=== PATIENT | female | born 2000 | race Caucasian/White ===

== ENCOUNTER 2019-01-13 02:40 | Emergency (ER) | payer BC, MEDICAID, OTHER ==
[~2019-01-13] VITALS: Ht 165.1 cm; Wt 49.4 kg
[~2019-01-13 02:40] MED LIST: ALB0.5UD NEB; ALBU6.7H3 IH; MONT10TA21 PO
[2019-01-13] MEDS ORDERED: normal saline 1000ML IV soln IVB ONE (02:50)
[2019-01-13] MEDS ORDERED: ondansetron/PF 4mg/2ml inj IV ONE (02:50)
[2019-01-13 03:32] LABS: HEMOGLOBIN 12.1 g/dl (12.0-16.0); MEAN CORPUSCULAR HEMOGLOBIN 31.2 PG (27.0-31.0); MONOCYTES # (AUTO) 0.7 X10'3 (0-0.9); NEUTROPHILS # (AUTO) 1.9 X10'3 (1.8-7.7); RED BLOOD COUNT 3.88 X10'6 (4.20-5.60)
[2019-01-13 03:34] LABS: BASOPHILS % (AUTO) 0.5 % (0-1); EOSINOPHILS % (AUTO) 0.2 % (0-6); HEMATOCRIT 36.1 % (35.0-45.0); LYMPHOCYTES # (AUTO) 5.3 X10'3 (1.1-4.8); LYMPHOCYTES % (AUTO) 66.5 % (21-51); MEAN CORPUSCULAR HGB CONC 33.6 g/dL (33.0-36.5); MEAN PLATELET VOLUME 8.9 FL (7.4-10.4); MONOCYTES % (AUTO) 8.5 % (2-12); NEUTROPHILS % (AUTO) 24.3 % (42-75); PLATELET COUNT 158 X10'3 (140-440); RED CELL DISTRIBUTION WIDTH 13.6 % (11.5-14.5); WHITE BLOOD COUNT 7.9 X10'3 (4.5-11.0)
[2019-01-13 03:45] LABS: ALANINE AMINOTRANSFERASE 437 U/L (12-78); ALBUMIN 3.6 G/DL (3.4-5.0); ALBUMIN/GLOBULIN RATIO 0.9 (1.1-1.5); ALKALINE PHOSPHATASE 201 IU/L (20-180); ANION GAP 10 (8-16); ASPARTATE AMINO TRANSFERASE 220 U/L (10-37); BILIRUBIN,TOTAL 0.7 MG/DL (0.1-1.0); BLOOD UREA NITROGEN 7 MG/DL (7-18); BUN/CREATININE RATIO 12.7 (6.6-38.0); CALCIUM 9.2 MG/DL (8.5-10.1); CHLORIDE 103 MMOL/L (99-107); CREATININE 0.55 MG/DL (0.40-0.90); GLUCOSE 93 MG/DL (70-104); LIPASE < 50 U/L (73-393); SODIUM 141 MMOL/L (135-145); TOTAL CARBON DIOXIDE 27.8 MMOL/L (24-32); TOTAL PROTEIN 7.7 G/DL (6.4-8.2); eGFR > 90 ML/MIN
[2019-01-13 04:16] LABS: CLARITY,URINE CLEAR (Clear); COLOR,URINE YELLOW (Yellow); GLUCOSE, URINE NEGATIVE (Neg); KETONES,URINE 15 mg/dl (Neg); LEUKOCYTE ESTERASE ,URINE NEGATIVE (Neg); NITRITES, URINE NEGATIVE (Neg); OCCULT BLOOD,URINE NEGATIVE (Neg); PH,URINE 7.5 (4.8-8.0); PROTEIN,URINE NEGATIVE (Neg); UROBILINOGEN,URINE 0.2 E.U/dL (0.2-1.0)
[2019-01-13 04:21] LABS: UA COLLECTION TYPE CLN CATCH MIDSTREAM
[2019-01-13 04:42] LABS: URINE HCG NEGATIVE (NEG)
[2019-01-13] MEDS ORDERED: ONDA4TAB6 PO (04:52)
[2019-01-13 05:31] VITALS: BP 99/54
== END 2019-01-13 05:22 | disposition home or self-care (01) ==
LOC: ER 02:41
DX: R11.2 Nausea with vomiting, unspecified (principal); R94.5 Abnormal results of liver function studies; J02.9 Acute pharyngitis, unspecified; R50.9 Fever, unspecified; R51 Headache; J45.909 Unspecified asthma, uncomplicated; F12.90 Cannabis use, unspecified, uncomplicated; Z98.890 Other specified postprocedural states; Z79.899 Other long term (current) drug therapy
CPT/HCPCS: 80053; 81003; 81025; 83690; 85025; 96361; 96374; 99283; J2405; J7030

== ENCOUNTER 2019-05-24 13:07 | Emergency (ER) | payer OTHER ==
[~2019-05-24] VITALS: Ht 317.5 cm; Wt 56.3 kg
[~2019-05-24 13:07] MED LIST changes: +ONDA4TAB6 PO
[2019-05-24] MEDS ORDERED: CITA-311 PO (13:47)
[2019-05-24 15:06] LABS: URINE HCG NEGATIVE (NEG)
[2019-05-24 15:17] LABS: URINE AMPHETAMINE SCREEN NEGATIVE (Neg); URINE BARBITUATE SCREEN NEGATIVE (Neg); URINE BENZODIAZEPINES SCREEN NEGATIVE (Neg); URINE CANNABINOID SCREEN POSITIVE (Neg); URINE COCAINE SCREEN NEGATIVE (Neg); URINE METHADONE SCREEN NEGATIVE (Neg); URINE OPIATE SCREEN NEGATIVE (Neg); URINE PHENCYCLIDINE SCREEN NEGATIVE (Neg)
[2019-05-24 15:17] LABS: BASOPHILS % (AUTO) 0.4 % (0-1); EOSINOPHILS % (AUTO) 0.3 % (0-6); HEMATOCRIT 35.1 % (35.0-45.0); HEMOGLOBIN 11.9 g/dl (12.0-16.0); LYMPHOCYTES # (AUTO) 1.2 X10'3 (1.1-4.8); LYMPHOCYTES % (AUTO) 21.3 % (21-51); MEAN CORPUSCULAR HEMOGLOBIN 30.1 PG (27.0-31.0); MEAN CORPUSCULAR VOLUME 88.7 FL (78-98); MEAN PLATELET VOLUME 8.1 FL (7.4-10.4); MONOCYTES # (AUTO) 0.7 X10'3 (0-0.9); MONOCYTES % (AUTO) 12.7 % (2-12); NEUTROPHILS # (AUTO) 3.6 X10'3 (1.8-7.7); NEUTROPHILS % (AUTO) 65.3 % (42-75); PLATELET COUNT 204 X10'3 (140-440); RED BLOOD COUNT 3.95 X10'6 (4.20-5.60); RED CELL DISTRIBUTION WIDTH 13.4 % (11.5-14.5); WHITE BLOOD COUNT 5.5 X10'3 (4.5-11.0)
--- NOTE | 2019-05-24 15:27 | NUR ---
primary rn was sent on break, family at the bedside.
[2019-05-24 15:31] LABS: ALANINE AMINOTRANSFERASE 14 U/L (12-78); ALBUMIN 3.8 G/DL (3.4-5.0); ALBUMIN/GLOBULIN RATIO 1.2 (1.1-1.5); ALKALINE PHOSPHATASE 63 IU/L (20-180); ANION GAP 6 (8-16); ASPARTATE AMINO TRANSFERASE 12 U/L (10-37); BILIRUBIN,TOTAL 1.2 MG/DL (0.1-1.0); BLOOD UREA NITROGEN 11 MG/DL (7-18); BUN/CREATININE RATIO 20.4 (6.6-38.0); CALCIUM 8.7 MG/DL (8.5-10.1); CHLORIDE 109 MMOL/L (99-107); CREATININE 0.54 MG/DL (0.40-0.90); GLUCOSE 114 MG/DL (70-104); SODIUM 142 MMOL/L (135-145); TOTAL CARBON DIOXIDE 26.9 MMOL/L (24-32); TOTAL PROTEIN 6.9 G/DL (6.4-8.2); eGFR > 90 ML/MIN
[2019-05-24 15:41] LABS: ETHANOL < 0.010 GM/DL (0.0-0.010)
--- NOTE | 2019-05-24 15:55 | NUR ---
packet sent to [facility]
[2019-05-24 17:14] LABS: CLARITY,URINE CLEAR (Clear); COLOR,URINE YELLOW (Yellow); GLUCOSE, URINE NEGATIVE (Neg); KETONES,URINE NEGATIVE (Neg); LEUKOCYTE ESTERASE ,URINE NEGATIVE (Neg); NITRITES, URINE NEGATIVE (Neg); OCCULT BLOOD,URINE NEGATIVE (Neg); PH,URINE 7.5 (4.8-8.0); PROTEIN,URINE NEGATIVE (Neg); UROBILINOGEN,URINE 0.2 E.U/dL (0.2-1.0)
[2019-05-24 17:19] LABS: UA COLLECTION TYPE CLN CATCH MIDSTREAM
--- NOTE | 2019-05-24 19:14 | NUR ---
Patient is awake and well oriented. Family is at bedside. Patient complains of recent depression and cutting her wrists for relief of depression. Patient admits to suicidal ideation. Patients plan is cutting wrists or medication overdose. Patients parents are at bedside. Parents are supportive and state they can provide a safe enviornment for this patient. Patient states she takes an anti depressent which she started two weeks ago. This patient has a flat affect, she speeks in a very soft voice and a slow rate. She is well oriented and cooperative with this documentation writer. This patients friend arrives with vegan food for the patient. Parents state the day nurse authorized the food. The patient and her parents were advised that this is against policy and a one time exception will be made. The patient and her parents exhibit understanding. A vegan diet will be ordered.
--- NOTE | 2019-05-24 20:30 | NUR ---
Patient sleeping on her right side. Warm blankets were given to this patient.
[2019-05-24] MEDS ORDERED: LORazepam 1 MG tablet PO ONE (21:00)
--- NOTE | 2019-05-24 21:20 | NUR ---
Patient sleeping on her right side. In view from the nursing station.
--- NOTE | 2019-05-24 22:53 | NUR ---
Patient sleeping low fowlers position.
--- NOTE | 2019-05-25 02:43 | NUR ---
Patient is sleeping quietly on her left side.
--- NOTE | 2019-05-25 02:50 | NUR ---
Chapis smith in [facility] - 05/25/19 at 0257 by CHARITO Patient is sleeping quietly on her left side.
[2019-05-25] MEDS ORDERED: albuterol 2.5 MG/3 ML nebule NEB PRN (04:00)
[2019-05-25] MEDS ORDERED: ALBUTEROL SULFATE 2.5 MG NEB SCH (04:00)
--- NOTE | 2019-05-25 05:48 | NUR ---
Patient is sleeping quietly on her left side.
[2019-05-25 05:59] VITALS: BP 107/68
--- NOTE | 2019-05-25 06:30 | NUR ---
Patient sleeping on left side. No distress observed. Continue to monitor.
[2019-05-25] MEDS ORDERED: montelukast 10mg tablet PO SCH (08:00)
[2019-05-25] MEDS ORDERED: CITALOpram 10mg tablet PO SCH (08:00)
--- NOTE | 2019-05-25 08:15 | NUR ---
Patient eating her breakfast. No distress observed. Continue to monitor.
--- NOTE | 2019-05-25 09:25 | NUR ---
Patient tearful. Patient states she still feels like killing herself. Patient states she has been feeling like this for a month. Patient is pending [facility] eval. Continue to monitor.
--- NOTE | 2019-05-25 10:35 | NUR ---
Patient's parents sitting at bedside. Patient sleeping on left side. No distress observed at this time. Continue to monitor.
--- NOTE | 2019-05-25 11:23 | NUR ---
Patient sleeping on right side. No distress observed. Continue to monitor.
--- NOTE | 2019-05-25 13:44 | NUR ---
Breaking primary RN, pt is up at the nurses station requesting phone, I obtained one and gave it to her, no agitation observed
--- NOTE | 2019-05-25 14:30 | NUR ---
Patient placed on a 5150 for DTS. Patient advised. Continue to monitor.
== END 2019-05-25 15:26 | disposition home or self-care (01) ==
LOC: EEVIPCON 13:07 → ER 13:07
DX: R45.851 Suicidal ideations (principal); F41.9 Anxiety disorder, unspecified; F32.9 Major depressive disorder, single episode, unspecified; J45.909 Unspecified asthma, uncomplicated; F12.90 Cannabis use, unspecified, uncomplicated; Z98.890 Other specified postprocedural states; Z79.899 Other long term (current) drug therapy
CPT/HCPCS: 36415; 80053; 80305; 80320; 81003; 81025; 84443; 85025; 99284

== ENCOUNTER 2019-05-25 15:00 | Inpatient (IN) | payer OTHER ==
[~2019-05-25] VITALS: Ht 165.1 cm; Wt 55.5 kg
[~2019-05-25 15:00] MED LIST changes: +CITA-311 PO
[2019-05-25] MEDS ORDERED: NICOTINE POLACRILEX 2 MG LOZENGE BC PRN (16:30)
[2019-05-25] MEDS ORDERED: magnesium hydroxide 30ml (MOM) UD suspension PO PRN (16:30)
[2019-05-25] MEDS ORDERED: acetaminophen 325mg tablet PO PRN ×2 (16:30)
[2019-05-25] MEDS ORDERED: loperamide 2mg capsule PO PRN (16:30)
[2019-05-25] MEDS ORDERED: hydrOXYzine 25 MG tablet PO PRN (16:30)
[2019-05-25] MEDS ORDERED: mag hydrox/Alum hydrox/simeth 30ml oral suspension PO PRN (16:30)
[2019-05-25] MEDS ORDERED: traZODone 50mg tablet PO PRN (16:30)
[2019-05-25] MEDS ORDERED: ALBUTEROL SULFATE IH SCH (16:40)
[2019-05-25] MEDS ORDERED: albuterol 2.5 MG/3 ML nebule NEB PRN (16:45)
--- NOTE | 2019-05-25 16:50 | NUR ---
Admission Note: PT admitted to [facility] on 5150 for DTS at 1555. Pt states she feels helpless, hopeless, sad and doesn't want to live anymore. She does not believe there is a reason for her to be alive. She drank alcohol, started feeling more depressed and the suicide thoughts are worse. She does not trust herself and states she will cut her wrist or overdose on her antidepressants to end her life. She would not contract for safety even with support from her parents. Pt has history of depression, anxiety, asthma.
[2019-05-25 17:00] VITALS: BP 120/69
[2019-05-25 20:49] VITALS: BP 100/62
--- NOTE | 2019-05-26 02:53 | NUR ---
Nursing Progress Note: Legal hold: 5150 Client on involuntary status for DTS. Report received from JACQUELINE Alvarez with use of SBAR. Why are they here: PT admitted to [facility] on 5150 for DTS at 1555. Pt states she feels helpless, hopeless, sad and doesn't want to live anymore. She does not believe there is a reason for her to be alive. She drank alcohol, started feeling more depressed and the suicide thoughts are worse. She does not trust herself and states she will cut her wrist or overdose on her antidepressants to end her life. She would not contract for safety even with support from her parents. Pt has history of depression, anxiety, asthma. Assessment: What has happened this shift: The patient was in her room waiting for her parents to visit. She reported that she was hungry due to her being a Vegan, and she hadn't yet gotten a Vegan diet. Dietary was contacted and they sent up some Vegan type foods and snacks. She happily accepted. The patient would only say one thing when asked how she came to be here. "All I can say is...it's one of the worst things that can be done to a person." The patient reports that she's been hopelessly depressed for long time and anxiety makes it worse. She had nice visit with her parents, took her meds, then went to bed. S/I, H/I: SI A/VH: Denies Sleep: See sleep assessment ADL's: Independent Group attendance: No night groups. Were meds taken: Yes Any med S/E: None reported or observed. Mental Status Exam Appearance: Thin, well groomed young lady with long black hair in street clothes. Eye contact: Fair Behavior: Isolative, quiet, reserved. Speech: Clear Mood: Depressed Affect: Flat Thought process: Linear Thought Content: Unable Cognition: Alert Insight: Poor Judgment: Poor Interventions PRN's used: Therapeutic interventions: Introduced self and established rapport, ensured contract for safety, maintained a safe and therapeutic environment, monitored behaviors and need for intervention, provided clear and simple instructions, and maintained Q 15 min safety checks. Restraints/seclusion/emergency medication: N/A Justification of Continued Inpatient Treatment: Pt. requires interruption of current crisis, medication adjustments and a safe and therapeutic environment.
[2019-05-26] MEDS ORDERED: CITALOpram 10mg tablet PO SCH (08:00)
[2019-05-26 08:06] VITALS: BP 100/55
[2019-05-26] MEDS: montelukast 10mg tablet PO SCH (08:27)
[2019-05-26] MEDS ORDERED: LORazepam 1 MG tablet PO PRN (16:50)
--- NOTE | 2019-05-26 18:17 | NUR ---
Nursing Progress Note: Legal hold: 5150 Client on involuntary status for DTS. Report received from RN with use of SBAR. Why are they here: PT admitted to [facility] on 5150 for DTS at 1555. Pt states she feels helpless, hopeless, sad and doesn't want to live anymore. She does not believe there is a reason for her to be alive. She drank alcohol, started feeling more depressed and the suicide thoughts are worse. She does not trust herself and states she will cut her wrist or overdose on her antidepressants to end her life. She would not contract for safety even with support from her parents. Pt has history of depression, anxiety, asthma. Assessment: What has happened this shift: Received Pt in her room sleeping w/o distress with covers over her head in her room at change of shift. Pt awoke for vitals and was pleasant and cooperative with assessment and morning meds. Routine for day explained to her and she stated she is looking forward to groups. Pt visited with parents and brother in AM. She attended groups and unit activities and appeared to be less depressed than noted at admission. She walked the halls a bit and was seen smiling and talking with another Pt. Pt instructed to come to staff if she felt uncomfortable with any other Pts. Pt played scrabble in community room for a while and watched some TV. She reports not having SI or thoughts of self harm and able to speak of future plans at school and maybe getting a new job. S/I, H/I: Denies A/VH: Denies Sleep: Not on Day shift ADL's: Independent Group attendance: Yes Were meds taken: Yes Any med S/E: None reported or observed. Mental Status Exam Appearance: Well groomed in own clothes Eye contact: Good Behavior: Quiet but interactive Speech: Clear Mood: Depressed Affect: Smiling Thought process: Linear Thought Content: BF, school, other Pts Cognition: Alert Insight: Fair Judgment: Fair Interventions PRN's used: Therapeutic interventions: Introduced self and established rapport, ensured contract for safety, maintained a safe and therapeutic environment, monitored behaviors and need for intervention, provided clear and simple instructions, and maintained Q 15 min safety checks. Restraints/seclusion/emergency medication: N/A Justification of Continued Inpatient Treatment: Pt. requires interruption of current crisis, medication adjustments and a safe and therapeutic environment.
[2019-05-26 20:00] VITALS: BP 96/54
[2019-05-26] MEDS: traZODone 50mg tablet PO PRN (20:50)
[2019-05-26] MEDS: citalopram 20mg tablet PO SCH (20:50)
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
[2019-05-27] MEDS: citalopram 20mg tablet PO SCH (08:24)
[2019-05-27] MEDS: montelukast 10mg tablet PO SCH (08:24)
[2019-05-27 08:32] VITALS: BP 99/67
--- NOTE | 2019-05-27 14:40 | NUR ---
Assessment Presenting Issues: Pt's on 5149 due to increasing sxs of depression, anxiety and attempts of self harm. Pt needs a psychosocial assessment. Interventions: SS met w/pt and engaged her in discussion to complete a bio-psychosococial assessment. Pt signed KARY & consent for treatment. Pt also completed a Mood Disorder Questionaire, per result of her MDQ, sxs of a mood disorder are not present at this time. Plan: SS will begin dcp activities w/pt & family. Diamante Gorman LCSW Addendum: 05/28/19 at 0817 by Diamante Gorman Amended: Links added.
--- NOTE | 2019-05-27 15:35 | NUR ---
Nursing Progress Note Legal hold: 5150 Client on involuntary status for DTS. Report received from JEROME Castro with use of SBAR. Why are they here: PT admitted to [facility] on a 5150 for DTS. Pt states she feels helpless, hopeless, sad and doesn't want to live anymore. She does not believe there is a reason for her to be alive. She drank alcohol, started feeling more depressed becoming suicidal with a plan. to cut or OD on pills. She would not contract for safety even with support from her parents. Pt has history of depression, anxiety, asthma. Assessment: What has happened this shift: Pt sleeping on her bed. RR even and unlabored; her head is covered. Pt went to groups and socializes well with peers. She played a board game in the Rec RM after lunch. She is quiet, calm and cooperative. She agrees she needs to stay here and let her doctors help her before going home. S/I, H/I: Denies A/VH: Denies Sleep: None ADL's: Independent Group attendance: Yes Were Meds taken: Yes Any med S/E: None reported or observed. Mental Status Exam Appearance: personal clothing Eye contact: Good Behavior: Calm Speech: Normal rate and rhythm Mood: Euthymic Affect: Bright Thought process: Linear Thought Content: Not understanding why she became suicidial Cognition: Alert Insight: Poor Judgment: Fair Interventions PRN's used: N/A Therapeutic interventions: 1:1 assessment, therapeutic communication w/active listening, medication administration/education/monitoring, encouraged group attendance, maintained Q 15 min safety checks. Restraints/seclusion/emergency medication: N/A Justification of Continued Inpatient Treatment: Pt. requires interruption of current crisis, medication adjustments and a safe and therapeutic environment.
[2019-05-27 20:48] VITALS: BP 104/62
[2019-05-27] MEDS: traZODone 50mg tablet PO PRN (21:20)
--- NOTE | 2019-05-27 21:49 | NUR ---
Nursing Progress Note: Legal hold: 5150 Client on involuntary status for DTS. Report received from JACQUELINE Alvarez with use of SBAR. Why are they here: PT admitted to [facility] on 5150 for DTS at 1555. Pt states she feels helpless, hopeless, sad and doesn't want to live anymore. She does not believe there is a reason for her to be alive. She drank alcohol, started feeling more depressed and the suicide thoughts are worse. She does not trust herself and states she will cut her wrist or overdose on her antidepressants to end her life. She would not contract for safety even with support from her parents. Pt has history of depression, anxiety, asthma. Assessment: What has happened this shift: The patient was seen in her room after her parents' visit. She reports that she's in her room to avoid another patient that thinks he loves her, and is writing love letters to her. This patient is sad, shy, young, and socially awkward. She may lack the social skills to deter this other patient, so she stays isolated in her room. The patient has seen the "love letter" and does not agree with it. She, in fact appears to be disgusted by it. "My hold is up tomorrow...I think they're going to let me go home, so as long as I stay in here, I won't have to see him." The patient is still depressed, but denying SI at this time. She may be minimizing so she can go home. The patient will be monitored through the night for her safety. S/I, H/I: Denies, but may be minimizing to go home. A/VH: Denies Sleep: See sleep assessment ADL's: Independent Group attendance: No night groups. Were meds taken: Yes Any med S/E: None reported or observed. Mental Status Exam Appearance: Thin, well groomed young lady with long wavy black hair in street clothes. Eye contact: Fair Behavior: Isolative, quiet, reserved. Speech: Clear Mood: Depressed Affect: Blunted Thought process: Linear, goal oriented Thought Content: Going home. Cognition: Alert Insight: Poor Judgment: Poor Interventions PRN's used: Trazodone x1 Therapeutic interventions: Introduced self and established rapport, ensured contract for safety, maintained a safe and therapeutic environment, monitored behaviors and need for intervention, provided clear and simple instructions, and maintained Q 15 min safety checks. Restraints/seclusion/emergency medication: N/A Justification of Continued Inpatient Treatment: Pt. requires interruption of current crisis, medication adjustments and a safe and therapeutic environment.
[2019-05-28 07:29] LABS: CHOL/HDL RATIO 1.9 (0.00-4.99); CHOLESTEROL 107 MG/DL (0-200); HDL CHOLESTEROL 55 MG/DL (35-60); LDL CHOLESTEROL 44 MG/DL (50-100); TRIGLYCERIDES 69 MG/DL (20-135)
[2019-05-28 07:52] VITALS: BP 102/64
[2019-05-28] MEDS: montelukast 10mg tablet PO SCH (08:01)
[2019-05-28] MEDS: citalopram 20mg tablet PO SCH (08:01)
--- NOTE | 2019-05-28 08:17 | NUR ---
CM Presenting Issues: Pt's no longer suicidal, feels that meds are working well and wished to be d/c. Interventions: SS had t/c w/pt's mother, left vm requesting a rt p/c to discuss safety plan & dcp so pt can rt home. Plan: SS will make referrals for outpatient therapy & f/u with PMD. Diamante Gorman DRAFTING LAYOUT WORKER Addendum: 05/28/19 at 0819 by Diamante Gorman Amended: Links added.
--- NOTE | 2019-05-28 10:54 | NUR ---
DCP-Family Meeting Presenting Issues: Pt reports feeling better and denies ashleigh MORFIN, looks forward to discharging home and resuming some of her day-day activities (school, work and social activities). MDT consultation noted that pt is no longer suicidal and can be d/c today when her hold expires. Interventions: SS met w/pt reviewed dcp (home w/f/u with PMD, referral for outpatient therapy, and safety plan at home). Pt agreeable to dcp as noted above. SS discussed a family meeting to engage pt's parents in dcp activities, pt agreeable to this. Pt's parents came during visitation, SS & pt met w/parents and finalized dcp. SS also provided psychoeducation re the risks of relapse shortly after d/c and adherence to the safety plan to mitigate risks of another crisis shortly after d/c. Also discussed the risks associated w/continued THC use and how it may impact pt's anxiety. Parents expressed concerns about recent situation between pt & another pt in the [facility], SS assured family that the care team has already met w/the other pt and set boundaries w/the other pt, SS also met w/pt this morning and provided strategies for asserting herself and maintaining her personal space. Parents expressed relief that care team is aware and adddressed the issue. Plan: SS will contact PMD & [facility] to coordinate outpatient f/u appointments for pt. Diamante Gorman LCSW Addendum: 05/28/19 at 1122 by Diamante LION Amended: Links added.
[2019-05-28] MEDS ORDERED: TRAZ-251 PO (14:17)
[2019-05-28] MEDS ORDERED: CITA-124 PO (14:17)
[2019-05-28] MEDS ORDERED: NICO-668 BC (14:17)
--- NOTE | 2019-05-28 15:50 | NUR ---
DISCHARGE NOTE Per Dr. Foy pt discharged home. Medications called into [facility] on [address]. Personal property inventoried and returned to pt per JT Montelongo. Pt declined smoking cessation information states, "I rarely smoke." Verbal education on smoking cessation and diseases caused from smoking provided to pt. Pt acknowledges understanding by clarifying, "I don't smoke." Pt picked up by both parents to return home. Pt left here smiling. She agrees to follow up with out patient therapy information to recommended therapist and organization with treatment provided to the pt.
== END 2019-05-28 15:50 | disposition home or self-care (01) | DRG 885 ==
LOC: ADULT MH 15:21
PROVIDERS: ADMIT Psychiatry & Neurology Psychiatry; ATTEND Psychiatry & Neurology Psychiatry
DX: F33.2 Major depressive disorder, recurrent severe without psychotic features (principal); R45.851 Suicidal ideations; D64.9 Anemia, unspecified; F12.90 Cannabis use, unspecified, uncomplicated; F41.9 Anxiety disorder, unspecified; J45.909 Unspecified asthma, uncomplicated; F17.200 Nicotine dependence, unspecified, uncomplicated; Z71.6 Tobacco abuse counseling; Z71.51 Drug abuse counseling and surveillance of drug abuser
CPT/HCPCS: 36415; 80061; 83036; 87081

== ENCOUNTER 2021-08-15 11:06 | Outpatient (CLI) | payer BC ==
[~2021-08-15 11:06] MED LIST changes: +CITA-124 PO; -CITA-311 PO; +NICO-668 BC; -ONDA4TAB6 PO; +TRAZ-251 PO
[2021-08-15 11:40] LABS: BASOPHILS % (AUTO) 0.7 % (0-1); EOSINOPHILS # (AUTO) 0.2 X10'3 (0-0.9); EOSINOPHILS % (AUTO) 3.1 % (0-6); HEMATOCRIT 38.5 % (35.0-45.0); HEMOGLOBIN 12.7 g/dl (12.0-16.0); LYMPHOCYTES # (AUTO) 1.4 X10'3 (1.1-4.8); LYMPHOCYTES % (AUTO) 26.1 % (21-51); MEAN CORPUSCULAR HEMOGLOBIN 29.5 PG (27.0-31.0); MEAN CORPUSCULAR HGB CONC 32.8 g/dL (33.0-36.5); MEAN CORPUSCULAR VOLUME 89.7 FL (78-98); MONOCYTES # (AUTO) 0.6 X10'3 (0-0.9); MONOCYTES % (AUTO) 10.3 % (2-12); NEUTROPHILS # (AUTO) 3.2 X10'3 (1.8-7.7); NEUTROPHILS % (AUTO) 59.8 % (42-75); PLATELET COUNT 250 X10'3 (140-440); RED CELL DISTRIBUTION WIDTH 13.1 % (11.5-14.5); WHITE BLOOD COUNT 5.4 X10'3 (4.5-11.0)
[2021-08-15 12:58] LABS: ALANINE AMINOTRANSFERASE 17 U/L (12-78); ALBUMIN 3.8 G/DL (3.4-5.0); ALBUMIN/GLOBULIN RATIO 1.1 (1.1-1.5); ALKALINE PHOSPHATASE 62 IU/L (46-116); ANION GAP 8 (8-16); ASPARTATE AMINO TRANSFERASE 11 U/L (10-37); BILIRUBIN,TOTAL 0.6 MG/DL (0.1-1.0); BLOOD UREA NITROGEN 12 MG/DL (7-18); CALCIUM 8.8 MG/DL (8.5-10.1); CHLORIDE 106 MMOL/L (99-107); CREATININE 0.63 MG/DL (0.40-0.90); GLUCOSE 93 MG/DL (70-104); POTASSIUM 4.3 MMOL/L (3.5-5.1); SODIUM 138 MMOL/L (135-145); TOTAL CARBON DIOXIDE 24.1 MMOL/L (24-32); TOTAL PROTEIN 7.3 G/DL (6.4-8.2); eGFR > 90 ML/MIN
[2021-08-15 13:08] LABS: CHOL/HDL RATIO 2.2 (0.00-4.99); CHOLESTEROL 150 MG/DL (0-200); HDL CHOLESTEROL 68 MG/DL (35-60); LDL CHOLESTEROL 65 MG/DL (50-100); TRIGLYCERIDES 32 MG/DL (20-135)
== END 2021-08-15 23:59 | disposition home or self-care (01) ==
LOC: LAB 11:06
PROVIDERS: ATTEND Physician Assistant
DX: Z00.00 Encounter for general adult medical examination without abnormal findings (principal)
CPT/HCPCS: 36415; 80053; 80061; 84439; 84443; 85025